=== PATIENT | female | born 1990 | race Asian ===

== ENCOUNTER 2023-11-15 09:38 | Outpatient (CLI) | payer OTHER ==
[~2023-11-15] VITALS: Ht 162.6 cm; Wt 67.7 kg
[2023-11-15] MEDS ORDERED: PREN1CHW6 PO (10:04)
[2023-11-15] MEDS ORDERED: OMEP40CA4 PO (10:04)
[2023-11-15] MEDS ORDERED: FLON1SPR NARES (10:05)
[2023-11-15] MEDS ORDERED: HOME MED LIST COMPLETE! XX SCH (10:05)
[2023-11-15 10:08] VITALS: BP 123/66
== END 2023-11-15 10:54 | disposition home or self-care (01) ==
LOC: M LDO 09:38
PROVIDERS: ATTEND Obstetrics & Gynecology
DX: O26.893 Other specified pregnancy related conditions, third trimester (principal); N89.8 Other specified noninflammatory disorders of vagina; Z79.899 Other long term (current) drug therapy
CPT/HCPCS: 59025; 76815; G0463

== ENCOUNTER 2023-11-18 05:20 | Inpatient (IN) | payer OTHER ==
[~2023-11-18] VITALS: Ht 162.6 cm; Wt 68.7 kg
[2023-11-18] VITALS (17 sets, daily range): BP systolic 118–141; BP diastolic 61–79; O2SAT 97
[~2023-11-18 05:20] MED LIST: FLON1SPR NARES; OMEP40CA4 PO; PREN1CHW6 PO
[2023-11-18] MEDS ORDERED: OXYTOCIN DRIP 30 UNITS in IV 1 EA IV SCH (05:55)
[2023-11-18] MEDS ORDERED: LIDOCAINE 1% MDV 20ML VIAL INFIL PRN (05:55)
[2023-11-18] MEDS ORDERED: LR 1,000 ML IV SCH (05:55)
[2023-11-18] MEDS ORDERED: OXYTOCIN INJ 10UNITS/ML 1ML VIAL IM PRN (05:55)
[2023-11-18] MEDS ORDERED: OXYTOCIN DRIP 30 UNITS in IV 1 EA IV PRN ×3 (05:55)
[2023-11-18] MEDS ORDERED: METHYLERGONOVINE MALEATE 0.2MG/ML 1ML VIAL IM PRN (05:55)
[2023-11-18] MEDS ORDERED: TRANEXAMIC ACID INJection 1,000 MG in NS 100 ML IV PRN (05:55)
[2023-11-18] MEDS ORDERED: CARBOPROST TROMETHAMINE 250 MCG/ML AMP IM PRN (05:55)
[2023-11-18] MEDS ORDERED: OXYTOCIN INJ 10UNITS/ML 1ML VIAL IV PRN (05:55)
[2023-11-18 06:21] LABS: HEMATOCRIT 45.7 % (36.0-47.0); HEMOGLOBIN 15.7 g/dl (12.0-15.5); MEAN CORPUSCULAR HGB CONC 34.4 g/dl (32.0-36.5); MEAN CORPUSCULAR VOLUME 87.2 fl (80.0-96.0); PLATELET COUNT, AUTOMATED 233 10^3/uL (150-450); RED BLOOD COUNT 5.24 10^6/uL (4.00-5.40); WHITE BLOOD COUNT 10.5 10^3/uL (4.0-10.0)
[2023-11-18] MEDS: LACTATED RINGER'S 1000 ML IV STA (06:40)
[2023-11-18] MEDS ORDERED: EPIDURAL/PCA KEYS XX PRN (07:20)
[2023-11-18] MEDS ORDERED: diphenhydrAMINE 50MG/ML VIAL IV PRN (07:20)
[2023-11-18] MEDS ORDERED: ePHEDrine SULFATE 25 MG/5 ML(5MG/ML) SYRINGE IVP PRN (07:20)
[2023-11-18] MEDS ORDERED: ONDANSETRON 4MG 2ML VIAL IV PRN (07:20)
[2023-11-18] MEDS ORDERED: NALOXONE INJ 0.4MG/1ML VIAL IV PRN (07:20)
[2023-11-18] MEDS: FENTANYL/ROPIVACAINE/NACL BAG 100 ML EPIDURAL SCH (07:46)
[2023-11-18] MEDS: LR 500 ML IV PRN (07:47)
[2023-11-18] MEDS: LR 1,000 ML IV SCH ×2 (07:47→11:18)
[2023-11-18] MEDS: PRENATAL VITAMINS CHEWABLE TABLET PO SCH (09:00)
[2023-11-18] MEDS ORDERED: DOCUSATE SODIUM 100MG CAPSULE PO PRN (10:45)
[2023-11-18] MEDS ORDERED: METHYLERGONOVINE MALEATE 0.2 MG TAB PO PRN (10:45)
[2023-11-18] MEDS ORDERED: RHOGAM 300MCG (1500IU) INJ IM SCH (10:45)
[2023-11-18] MEDS ORDERED: MOM 30ML SUSPENSION UDC PO PRN (10:45)
[2023-11-18] MEDS ORDERED: DIBUCAINE 1% OINTMENT 30GM TOP PRN (10:45)
[2023-11-18] MEDS ORDERED: IBUPROFEN 600MG TAB PO PRN (10:45)
[2023-11-18] MEDS ORDERED: METOCLOPRAMIDE INJ 10MG/2ML VIAL IV PRN (10:45)
[2023-11-18] MEDS: OXYTOCIN DRIP 30 UNITS in IV 1 EA IV SCH (11:18)
[2023-11-18] MEDS: ACETAMINOPHEN TAB 650MG DOSE (2X325MG) PO PRN (18:24)
[2023-11-18] MEDS: IBUPROFEN 800 MG TAB PO PRN (22:20)
[2023-11-19] MEDS: ACETAMINOPHEN 500 MG TAB PO PRN (05:16)
[2023-11-19 06:00] VITALS: BP 112/66
[2023-11-20] MEDS ORDERED: MEASLES,MUMPS,RUBELLA VACCINE INJ (MMR-II) SC.IMMUN ONE (09:00)
== END 2023-11-19 12:45 | disposition home or self-care (01) | DRG 807 ==
LOC: M LDO 05:20 → M LDI 05:43 → M OBS 12:43
PROVIDERS: ADMIT Obstetrics & Gynecology; ATTEND Obstetrics & Gynecology
PROC: 10E0XZZ Delivery of Products of Conception, External Approach (ICD-10-PCS; principal; 2023-11-18)
PROC: 0HQ9XZZ Repair Perineum Skin, External Approach (ICD-10-PCS; 2023-11-18)
PROC: 10907ZC Drainage of Amniotic Fluid, Therapeutic from Products of Conception, Via Natural or Artificial Opening (ICD-10-PCS; 2023-11-18)
DX: O69.82X0 Labor and delivery complicated by other cord entanglement, without compression, not applicable or unspecified (principal); Z37.0 Single live birth; Z3A.38 38 weeks gestation of pregnancy; O70.0 First degree perineal laceration during delivery